=== PATIENT | male | born 1940 | race Caucasian/White ===

== ENCOUNTER → 2017-02-22 | Outpatient (REF) | payer MEDICARE, OTHER ==
[~2017-02-22] MED LIST: FOLI1TAB4 PO; METH2.5TA PO; MULTTAB PO
== END ==
LOC: M LAB REF 17:23
PROVIDERS: ATTEND Surgery
DX: C44.519 Basal cell carcinoma of skin of other part of trunk (principal)

== ENCOUNTER 2018-02-22 05:40 | Emergency (ER) | payer MEDICARE, OTHER ==
[2018-02-22 06:45] LABS: BASO % 0.3 % (0.0-1.0); EOS % 0.2 % (0.0-3.0); HEMATOCRIT 41.6 % (42.0-52.0); HEMOGLOBIN 14.1 g/dl (13.5-17.5); IMMATURE GRANULOCYTE % 0.2 % (0-3.0); LYMPH # 0.6 10^3/uL (1.5-4.5); LYMPH % 6.8 % (24.0-44.0); MEAN CORPUSCULAR HEMOGLOBIN 31.7 pg (27.0-33.0); MEAN CORPUSCULAR HGB CONC 33.9 g/dl (32.0-36.5); MEAN CORPUSCULAR VOLUME 93.5 fl (80.0-96.0); MONO # 0.5 10^3/uL (0.0-0.8); MONO % 5.5 % (0.0-5.0); NEUTROPHILS # 7.6 10^3/uL (1.8-7.7); PLATELET COUNT, AUTOMATED 179 10^3/uL (150-450); RED BLOOD COUNT 4.45 10^6/uL (4.30-6.10); WHITE BLOOD COUNT 8.8 10^3/uL (4.0-10.0)
[2018-02-22] MEDS: NS 1,000 ML IV (06:54)
[2018-02-22 06:58] LABS: ALBUMIN 3.3 GM/DL (3.2-5.2); ALBUMIN/GLOBULIN RATIO 1.06 (1.00-1.93); ALKALINE PHOSPHATASE 58 U/L (45-117); ALT/SGPT 32 U/L (12-78); ANION GAP 8 MEQ/L (8-16); AST/SGOT 28 U/L (7-37); BILIRUBIN,TOTAL 2.6 MG/DL (0.2-1.0); BLOOD UREA NITROGEN 17 MG/DL (7-18); CALCIUM LEVEL 7.7 MG/DL (8.8-10.2); CARBON DIOXIDE LEVEL 26 MEQ/L (21-32); CHLORIDE LEVEL 109 MEQ/L (98-107); CPK CREATINE PHOSPHOKINASE 322 U/L (39-308); CREATININE FOR GFR 1.04 MG/DL (0.70-1.30); GLOMERULAR FILTRATION RATE > 60.0 (>42); GLUCOSE, FASTING 136 MG/DL (70-100); POTASSIUM SERUM 3.8 MEQ/L (3.5-5.1); SODIUM LEVEL 143 MEQ/L (136-145); TOTAL PROTEIN 6.4 GM/DL (6.4-8.2); TROPONIN I < 0.02 NG/ML (< 0.10)
[2018-02-22 07:03] LABS: CK-MB VALUE MASS 2.5 NG/ML (<3.6); MB/CK RELATIVE INDEX 0.77 (< OR =4)
[2018-02-22 07:14] LABS: LACTIC ACID SEPSIS PROTOCOL 1.2 MMOL/L (0.4-2.0)
[2018-02-22 08:36] LABS: KETONE, URINE AUTO RFX NEGATIVE (NEGATIVE); LEUKOCYTE ESTERASE UR AUTO RFX NEGATIVE (NEGATIVE); MUCUS, URINE RFX SMALL (NEGATIVE); NITRITE, URINE AUTO RFX NEGATIVE (NEGATIVE); RBC, URINE AUTO RFX 5 /HPF (0-3); SQUAM EPITHELIAL CELL UR AURFX 0 /HPF (0-6); WBC, URINE AUTO RFX 1 /HPF (0-3)
[2018-02-22 14:25] LABS: BEDSIDE GLUCOSE 132 MG/DL (83-110)
== END 2018-02-22 10:33 | disposition home or self-care (01) ==
LOC: M ED 05:40
DX: G91.2 (Idiopathic) normal pressure hydrocephalus (principal); R94.31 Abnormal electrocardiogram [ECG] [EKG]; R26.2 Difficulty in walking, not elsewhere classified; R53.83 Other fatigue; R30.0 Dysuria; R35.0 Frequency of micturition; M19.90 Unspecified osteoarthritis, unspecified site; Z79.899 Other long term (current) drug therapy
CPT/HCPCS: 71046

== ENCOUNTER → 2018-04-22 | Outpatient (CLI) | payer MEDICARE, OTHER | LOC: M RADPRO 07:30 | DX: R90.89 Other abnormal findings on diagnostic imaging of central nervous system (principal); G91.9 Hydrocephalus, unspecified; Z91.81 History of falling | CPT/HCPCS: 62270 ==

== ENCOUNTER → 2018-05-03 | Outpatient (CLI) | payer MEDICARE, OTHER ==
[2018-05-03 13:28] LABS: CSF RBC < 2 10^3/uL (<2)
[2018-05-03 13:29] LABS: APPEARANCE, CSF CLEAR (CLEAR); COLOR, CSF COLORLESS (COLORLESS); CSF DIFF IF INDICATED? NO (NO); CSF TUBE# CELL CNT TUBE 4; CSF WBC 1 /uL (0-10)
[2018-05-03 13:38] LABS: CSF TUBE# GLU TUBE 1; CSF TUBE# TP TUBE 1; GLUCOSE CSF 83 MG/DL (40-75); TOTAL PROTEIN,CSF 75 MG/DL (15-45)
[2018-05-07 00:21] LABS: IMMUNOGLOBULIN G CSF 4.8 mg/dL (0.0-8.6)
== END ==
LOC: M RADPRO 11:37
DX: G91.2 (Idiopathic) normal pressure hydrocephalus (principal); Z79.899 Other long term (current) drug therapy
CPT/HCPCS: 62270

== ENCOUNTER 2020-05-02 10:52 | Emergency (ER) | payer MEDICARE, OTHER ==
[~2020-05-02] VITALS: Ht 175.3 cm; Wt 86.4 kg
[~2020-05-02 10:52] MED LIST changes: +FOLI1TAB11 PO; -FOLI1TAB4 PO; +METH2.5T48 PO; -METH2.5TA PO
[2020-05-02 11:39] LABS: HEMATOCRIT 45.3 % (42.0-52.0); HEMOGLOBIN 14.8 g/dl (13.5-17.5); MEAN CORPUSCULAR HEMOGLOBIN 31.2 pg (27.0-33.0); MEAN CORPUSCULAR HGB CONC 32.7 g/dl (32.0-36.5); MEAN CORPUSCULAR VOLUME 95.4 fl (80.0-96.0); PLATELET COUNT, AUTOMATED 185 10^3/uL (150-450); RED BLOOD COUNT 4.75 10^6/uL (4.30-6.10); WHITE BLOOD COUNT 6.7 10^3/uL (4.0-10.0)
--- NOTE | 2020-05-02 11:39 | REPVR ---
PROCEDURE INFORMATION: Exam: CT Head Without Contrast Exam date and time: 05/02/2020 11:13 AM Age: 80 years old Clinical indication: Syncope and collapse; Additional info: Nph TECHNIQUE: Imaging protocol: Computed tomography of the head without contrast. Radiation optimization: All CT scans at this facility use at least one of these dose optimization techniques: automated exposure control; mA and/or kV adjustment per patient size (includes targeted exams where dose is matched to clinical indication); or iterative reconstruction. COMPARISON: CT Head without contrast 02/22/2018 6:53 AM FINDINGS: Brain: Small new linear area of encephalomalacia in the left frontal lobe could relate to tract of a prior shunt. Mild degrees of lucency in the white matter are most suggestive of chronic microvascular ischemic disease. These are fairly similar. There is no evidence for large acute cortical infarct. No intracranial hemorrhage or extraaxial collection is identified. There is no significant intracranial mass effect. Cerebral ventricles: There has been interval placement of a right parietal approach REFINER OPERATOR shunt, with its tip in the frontal horn of the left lateral ventricle. There is fairly similar diffuse ventricular dilatation. Bones/joints: Unremarkable. No acute fracture. Paranasal sinuses: Visualized sinuses are unremarkable. No fluid levels. Mastoid air cells: Visualized mastoid air cells are well aerated. Vasculature: Intracranial atherosclerotic vascular calcifications are again present. Soft tissues: Unremarkable. IMPRESSION: 1. No CT evidence for acute intracranial abnormality. 2. Interval placement of a REFINER OPERATOR shunt since 02/22/18, with similar ventricular dilatation and mild chronic white matter disease. Electronically signed by: Abdullahi Clements On 05/02/2020 11:39:00 AM
[2020-05-02 12:15] LABS: BLOOD UREA NITROGEN 19 MG/DL (7-18); CALCIUM LEVEL 8.4 MG/DL (8.8-10.2); CARBON DIOXIDE LEVEL 26 MEQ/L (21-32); CHLORIDE LEVEL 109 MEQ/L (98-107); CREATININE FOR GFR 1.06 MG/DL (0.70-1.30); GLOMERULAR FILTRATION RATE > 60.0 (>42); GLUCOSE, FASTING 153 MG/DL (70-100); MAGNESIUM LEVEL 2.1 MG/DL (1.8-2.4); POTASSIUM SERUM 3.9 MEQ/L (3.5-5.1); SODIUM LEVEL 141 MEQ/L (136-145)
[2020-05-02 12:38] VITALS: BP 141/83
== END 2020-05-02 12:40 | disposition left against medical advice (07) ==
LOC: M ED 10:52 → EDBD 10:52 → M ED 12:40
DX: R55 Syncope and collapse (principal); M06.9 Rheumatoid arthritis, unspecified; N40.0 Benign prostatic hyperplasia without lower urinary tract symptoms; Z98.2 Presence of cerebrospinal fluid drainage device; Z79.899 Other long term (current) drug therapy

== ENCOUNTER 2020-11-18 12:30 | Emergency (ER) | payer MEDICARE, OTHER ==
[~2020-11-18] VITALS: Ht 175.3 cm; Wt 83.6 kg
[2020-11-18 14:45] LABS: BASO # 0.1 10^3/uL (0.0-0.2); BASO % 0.9 % (0.0-1.0); EOS # 0.2 10^3/uL (0.0-0.5); EOS % 3.4 % (0.0-3.0); HEMATOCRIT 44.7 % (42.0-52.0); HEMOGLOBIN 14.7 g/dl (13.5-17.5); LYMPH # 0.8 10^3/uL (1.5-5.0); MEAN CORPUSCULAR HEMOGLOBIN 31.7 pg (27.0-33.0); MEAN CORPUSCULAR HGB CONC 32.9 g/dl (32.0-36.5); MEAN CORPUSCULAR VOLUME 96.3 fl (80.0-96.0); MONO # 0.4 10^3/uL (0.0-0.8); MONO % 5.8 % (2.0-8.0); NEUTROPHILS # 5.4 10^3/uL (1.5-8.5); NEUTROPHILS % 77.5 % (36.0-66.0); PLATELET COUNT, AUTOMATED 191 10^3/uL (150-450); RED BLOOD COUNT 4.64 10^6/uL (4.30-6.10)
[2020-11-18 14:59] LABS: INR 1.09; PROTHROMBIN TIME 14.3 SECONDS (12.5-14.3)
[2020-11-18 15:00] LABS: PARTIAL THROMBOPLASTIN TIME 25.3 SECONDS (24.2-38.5)
--- NOTE | 2020-11-18 15:11 | REP ---
INDICATION: Syncope/near-syncope. COMPARISON: Comparison radiographs February 22, 2018. TECHNIQUE: Portable upright AP chest radiograph. FINDINGS: The lungs are well inflated and free of infiltrate. Pleural angles are sharp. Heart size is normal. Pulmonary vasculature is not increased. The thoracic aorta is somewhat tortuous. EKG electrodes are seen. A right-sided ventriculoperitoneal shunt catheter is noted. IMPRESSION: No active disease. <Electronically signed by Zain Jaimes > 11/18/20 [id number]
[2020-11-18 15:14] LABS: BLOOD UREA NITROGEN 20 MG/DL (7-18); CALCIUM LEVEL 8.5 MG/DL (8.8-10.2); CARBON DIOXIDE LEVEL 26 MEQ/L (21-32); CHLORIDE LEVEL 112 MEQ/L (98-107); CK-MB VALUE MASS 1.6 NG/ML (<3.6); CPK CREATINE PHOSPHOKINASE 106 U/L (39-308); CREATININE FOR GFR 1.28 MG/DL (0.70-1.30); FREE T4 0.93 NG/DL (0.76-1.46); GLOMERULAR FILTRATION RATE 57.9 (>42); GLUCOSE, FASTING 145 MG/DL (70-100); MAGNESIUM LEVEL 2.1 MG/DL (1.8-2.4); MB/CK RELATIVE INDEX 1.51 (< OR =4); POTASSIUM SERUM 4.2 MEQ/L (3.5-5.1); SODIUM LEVEL 144 MEQ/L (136-145); TROPONIN I < 0.02 NG/ML (< 0.10)
--- NOTE | 2020-11-18 15:15 | REP ---
INDICATION: Syncope. COMPARISON: None. TECHNIQUE: CT brain performed in the axial plane. Coronal reconstruction images are performed. FINDINGS: Right HOSPICE CLINICAL MARKETER shunt appears unchanged in position. The tip is in the frontal horn of the left lateral ventricle. There is stable diffuse ventricular dilatation. There is no acute intracranial hemorrhage or extra-axial fluid collection. There is no acute midline shift or mass effect. There are very mild periventricular white matter lucencies again noted, unchanged. There are mild vascular calcifications again seen in the carotid siphons. The visualized mastoid air cells and paranasal sinuses are clear. IMPRESSION: Stable exam compared to 05/02/2020. No acute intracranial hemorrhage or other acute intracranial finding. <Electronically signed by Zeeshan Cerrato > 11/18/20 [id number]
--- NOTE | 2020-11-18 15:21 | REP ---
INDICATION: Syncope. COMPARISON: None. TECHNIQUE: CT cervical spine performed in the axial plane, with sagittal and coronal reconstruction images performed. FINDINGS: There is no acute compression fracture or malalignment. There is no prevertebral soft tissue swelling. There is mild spurring of C3 and C4 with more moderate spurring of C5 through C7. There is slight disc space narrowing at C3-4. There is moderate disc space narrowing at C5-6 and C6-7. There is mild narrowing of the spinal canal at the C3-4 and C5-6 levels. There appears to be left-sided foraminal narrowing at C3-4 and C5-6. There is normal cervical lordosis. There is no abnormal density in the spinal canal. IMPRESSION: No evidence of acute fracture or dislocation.Degenerative changes as above. <Electronically signed by Zeeshan Cerrato > 11/18/20 [id number]
[2020-11-18 18:00] VITALS: BP 143/92
--- NOTE | 2020-11-19 09:35 | ECGEPIP ---
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
== END 2020-11-18 18:19 | disposition home or self-care (01) ==
LOC: M ED 12:30
DX: R55 Syncope and collapse (principal); Z79.899 Other long term (current) drug therapy

== ENCOUNTER → 2020-12-07 | Outpatient (REF) | payer MEDICARE, OTHER | LOC: M LAB REF 12:08 | PROVIDERS: ATTEND Internal Medicine | DX: Z51.81 Encounter for therapeutic drug level monitoring (principal); Z79.899 Other long term (current) drug therapy ==

== ENCOUNTER 2021-01-23 12:46 | Emergency (ER) | payer MEDICARE, OTHER ==
[~2021-01-23] VITALS: Ht 175.3 cm; Wt 87.3 kg
[2021-01-23] MEDS ORDERED: METH2.5T48 PO (13:15)
[2021-01-23] MEDS ORDERED: METOPROLOL 5 MG/5 ML VIAL IV STA (13:30)
--- NOTE | 2021-01-23 13:31 | REP ---
INDICATION: CHEST PAIN COMPARISON: None. TECHNIQUE: Portable AP view of the chest FINDINGS: The mediastinum and cardiac silhouette are stable and within normal limits for portable technique. The lung silva are clear without acute consolidation, effusion, or pneumothorax. Skeletal structures are intact. Right-sided ventriculoperitoneal shunt in stable position. IMPRESSION: No acute cardiopulmonary process appreciated. <Electronically signed by Adis Rajan > 01/23/21 [id number]
[2021-01-23 13:47] LABS: BASO # 0.1 10^3/uL (0.0-0.2); EOS # 0.6 10^3/uL (0.0-0.5); EOS % 7.9 % (0.0-3.0); HEMATOCRIT 44.9 % (42.0-52.0); HEMOGLOBIN 14.9 g/dl (13.5-17.5); LYMPH # 1.5 10^3/uL (1.5-5.0); LYMPH % 18.4 % (24.0-44.0); MEAN CORPUSCULAR HEMOGLOBIN 31.3 pg (27.0-33.0); MEAN CORPUSCULAR HGB CONC 33.2 g/dl (32.0-36.5); MEAN CORPUSCULAR VOLUME 94.3 fl (80.0-96.0); MONO # 0.6 10^3/uL (0.0-0.8); MONO % 7.6 % (2.0-8.0); NEUTROPHILS # 5.2 10^3/uL (1.5-8.5); NEUTROPHILS % 64.8 % (36.0-66.0); PLATELET COUNT, AUTOMATED 206 10^3/uL (150-450); RED BLOOD COUNT 4.76 10^6/uL (4.30-6.10)
[2021-01-23 13:59] LABS: INR 1.03; PROTHROMBIN TIME 13.7 SECONDS (12.5-14.3)
[2021-01-23 14:16] LABS: BLOOD UREA NITROGEN 21 MG/DL (7-18); CALCIUM LEVEL 8.4 MG/DL (8.8-10.2); CARBON DIOXIDE LEVEL 24 MEQ/L (21-32); CHLORIDE LEVEL 111 MEQ/L (98-107); CPK CREATINE PHOSPHOKINASE 87 U/L (39-308); CREATININE FOR GFR 1.04 MG/DL (0.70-1.30); GLOMERULAR FILTRATION RATE > 60.0 (>42); GLUCOSE, FASTING 123 MG/DL (70-100); MAGNESIUM LEVEL 2.1 MG/DL (1.8-2.4); MB/CK RELATIVE INDEX 3.45 (< OR =4); POTASSIUM SERUM 4.1 MEQ/L (3.5-5.1); SODIUM LEVEL 141 MEQ/L (136-145); TROPONIN I < 0.02 NG/ML (< 0.10)
[2021-01-23] MEDS ORDERED: DIGOXIN INJ 0.5 MG/2 ML AMP (J1160) IV ONE (14:25)
[2021-01-23] MEDS ORDERED: ELIQ5TAB PO (15:15)
[2021-01-23] MEDS ORDERED: DIGO0.123 PO (15:16)
[2021-01-23 15:30] VITALS: BP 113/62
--- NOTE | 2021-01-23 19:20 | ECGEPIP ---
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
== END 2021-01-23 15:45 | disposition home or self-care (01) ==
LOC: M ED 12:46
DX: I48.91 Unspecified atrial fibrillation (principal); M06.9 Rheumatoid arthritis, unspecified
CPT/HCPCS: 71045; 80048; 82550; 82553; 83735; 84484; 85025; 85610; 93005; 93041; 94760; 96374; 99285; J1160

== ENCOUNTER → 2021-02-21 | Outpatient (CLI) | payer MEDICARE, OTHER ==
[~2021-02-21] MED LIST changes: +DIGO0.123 PO; +ELIQ5TAB PO; +ISOVUE-370 76% 100ML VIAL As Ordered ONE
--- NOTE | 2021-02-21 10:58 | REPVR ---
PROCEDURE INFORMATION: Exam: CT Angiography Head With Contrast, Arteriography Exam date and time: 02/21/2021 10:10 AM Age: 81 years old Clinical indication: Syncope and collapse; Additional info: Syncope, lightheadedness TECHNIQUE: Imaging protocol: Computed tomography angiography of the head with contrast. Exam focused on the arteries. 3D rendering (Not supervised by radiologist): MIP and/or 3D reconstructed images were created by the technologist. Radiation optimization: All CT scans at this facility use at least one of these dose optimization techniques: automated exposure control; mA and/or kV adjustment per patient size (includes targeted exams where dose is matched to clinical indication); or iterative reconstruction. Contrast material: ISOVUE 370; Contrast volume: 75 ml; Contrast route: INTRAVENOUS (IV); COMPARISON: CT Head without contrast 11/18/2020 2:51 PM FINDINGS: Tubes, catheters and devices: Stable right parietal PMP shunt with its tip in the frontal horn of the left lateral ventricle. ANTERIOR CIRCULATION: Right internal carotid artery: Unremarkable. Intracranial segment is patent with no significant stenosis. No aneurysm. Right middle cerebral artery: Unremarkable. No occlusion or significant stenosis. No aneurysm. 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 The A2 segment is supplied via patent anterior communicating artery and demonstrates normal flow.. No occlusion or significant stenosis. No aneurysm. Left internal carotid artery: Unremarkable. Intracranial segment is patent with no significant stenosis. No aneurysm. Left middle cerebral artery: Unremarkable. No occlusion or significant stenosis. No aneurysm. Left anterior cerebral artery: Unremarkable. No occlusion or significant stenosis. No aneurysm. POSTERIOR CIRCULATION: Right vertebral artery: Hypoplastic. No occlusion or significant stenosis. No aneurysm. Left vertebral artery: Unremarkable. No occlusion or significant stenosis. No aneurysm. Basilar artery: Unremarkable. No occlusion or significant stenosis. No aneurysm. Right posterior cerebral artery: Unremarkable. No occlusion or significant stenosis. No aneurysm. Left posterior cerebral artery: Unremarkable. No occlusion or significant stenosis. No aneurysm. Brain: There is mild ill-defined patchy hypodensity within the bilateral cerebral periventricular white matter, consistent with chronic microvascular ischemic changes. There is mild diffuse cerebral atrophy present, consistent with this patient's age. Cerebral ventricles: The ventricular system demonstrates moderate diffuse compensatory enlargement. Bones/joints: Unremarkable. No acute fracture. Soft tissues: Unremarkable. IMPRESSION: 1. No stenosis. No occlusion. No aneurysm. 2. No acute infarction, masses or hemorrhage is seen. No acute intracranial abnormality is identified. 3. Diffuse age-related cerebral atrophy and mild chronic microvascular white matter ischemic changes. 4. 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 5. Phyllis Stroke Program Early CT Score (ASPECTS) = 10 Electronically signed by: Dashawn Perez On 02/21/2021 10:57:49 AM
--- NOTE | 2021-02-21 11:05 | REPVR ---
PROCEDURE INFORMATION: Exam: CT Angiography Neck With Contrast Exam date and time: 02/21/2021 10:10 AM Age: 81 years old Clinical indication: Other: Stenosis TECHNIQUE: Imaging protocol: Computed tomography angiography of the neck with contrast. 3D rendering (Not supervised by radiologist): MIP and/or 3D reconstructed images were created by the technologist. Radiation optimization: All CT scans at this facility use at least one of these dose optimization techniques: automated exposure control; mA and/or kV adjustment per patient size (includes targeted exams where dose is matched to clinical indication); or iterative reconstruction. Contrast material: ISOVUE 370; Contrast volume: 75 ml; Contrast route: INTRAVENOUS (IV); COMPARISON: CT Head without contrast 11/18/2020 2:51 PM FINDINGS: Right common carotid artery: No stenosis. No dissection or occlusion. Right internal carotid artery: No stenosis of the extracranial segment. No dissection or occlusion. Right external carotid artery: No occlusion or stenosis of the origin. Left common carotid artery: No stenosis. No dissection or occlusion. Left internal carotid artery: No stenosis of the extracranial segment. No dissection or occlusion. Mild calcified atherosclerotic plaque at the origin. Left external carotid artery: No occlusion or stenosis of the origin. Right vertebral artery: Hypoplastic. No stenosis. No dissection or occlusion. Left vertebral artery: No stenosis. No dissection or occlusion. Soft tissues: Normal. No significant soft tissue swelling. Bones/joints: No acute fracture. The cervical spine demonstrates marked degenerative changes at multiple levels. IMPRESSION: No hemodynamically significant stenosis. No occlusion. No dissection. REFERENCES: NASCET CRITERIA. The degree of internal carotid artery stenosis is based on NASCET criteria. Normal is no stenosis. Mild is less than 50% stenosis. Moderate is 50-69% stenosis. Severe is 70% to 99% stenosis. Total occlusion is no detectable patent lumen. Electronically signed by: Dashawn Perez On 02/21/2021 11:05:04 AM
== END ==
LOC: M RAD 09:43
PROVIDERS: ATTEND Neurological Surgery
DX: R55 Syncope and collapse (principal); R42 Dizziness and giddiness; R90.82 White matter disease, unspecified; G31.9 Degenerative disease of nervous system, unspecified; M50.30 Other cervical disc degeneration, unspecified cervical region
CPT/HCPCS: 70496; 70498; Q9967